=== PATIENT | female | born 1990 ===

== ENCOUNTER 2018-04-17 08:26 | Emergency (ER) | payer BC ==
[2018-04-17 08:46] VITALS: BP 146/102
[2018-04-17] MEDS ORDERED: XYLOCAINE 1% 20 mL INFILTRATI ONE (09:12)
--- NOTE | 2018-04-17 09:13 | Emergency Department Report ---
- General Chief complaint: Skin/Abscess/Foreign Body Stated complaint: BOIL Time Seen by Provider: 04/17/18 09:05 Source: patient Mode of arrival: Ambulatory Limitations: No Limitations - History of Present Illness Initial comments: Patient's 27-year-old [place] female who presents for boil to buttox, for last 4 days now patient started Keflex 2 days ago prescribed by PCP symptoms not improving patient denies no diarrhea no problems with bowel movements this is first abscess assessment Tetanus Up to Date: yes Location: buttocks Severity: moderate ([place] REL or) Severity scale (0 -10): 4 Quality: sharp Consistency: constant Improves with: none Worsens with: movement Context: other (abscess ) Associated symptoms: denies other symptoms Treatments Prior to Arrival: none - Related Data Previous Rx's Medication Instructions Recorded Last Taken Type Cephalexin [Keflex] 500 mg PO Q8HR #30 cap 04/17/18 Unknown Rx traMADol [Ultram] 50 mg PO Q6HR PRN #15 tablet 04/17/18 Unknown Rx Abscess Boil HPI - HPI Chief Complaint: Skin/Abscess/Foreign Body Stated Complaint: BOIL Time Seen by Provider: 04/17/18 09:05 Home Medications: Previous Rx's Medication Instructions Recorded Last Taken Type Cephalexin [Keflex] 500 mg PO Q8HR #30 cap 04/17/18 Unknown Rx traMADol [Ultram] 50 mg PO Q6HR PRN #15 tablet 04/17/18 Unknown Rx ED Review of Systems ROS: Stated complaint: BOIL Other details as noted in HPI Constitutional: denies: chills, fever Eyes: denies: eye pain, eye discharge, vision change ENT: denies: ear pain, throat pain Respiratory: denies: cough, shortness of breath, wheezing Cardiovascular: denies: chest pain, palpitations Endocrine: no symptoms reported Gastrointestinal: denies: abdominal pain, nausea, diarrhea Genitourinary: denies: urgency, dysuria, discharge Musculoskeletal: denies: back pain, joint swelling, arthralgia Skin: other (abscess buttocks) Neurological: denies: headache, weakness, paresthesias Psychiatric: denies: anxiety, depression Hematological/Lymphatic: denies: easy bleeding, easy bruising ED Past Medical Hx - Past Medical History Hx Asthma: No - Surgical History Past Surgical History?: Yes Additional Surgical History: - Social History Smoking Status: Never Smoker Substance Use Type: None - Medications Home Medications: Home Medications Medication Instructions Recorded Confirmed Last Taken Type Cephalexin [Keflex] 500 mg PO Q8HR #30 cap 04/17/18 Unknown Rx traMADol [Ultram] 50 mg PO Q6HR PRN #15 tablet 04/17/18 Unknown Rx ED Physical Exam - General Limitations: No Limitations General appearance: alert, in no apparent distress - Head Head exam: Present: atraumatic, normocephalic - Eye Eye exam: Present: normal appearance - ENT ENT exam: Present: mucous membranes moist - Neck Neck exam: Present: normal inspection - Respiratory Respiratory exam: Present: normal lung sounds bilaterally. Absent: respiratory distress - Cardiovascular Cardiovascular Exam: Present: regular rate, normal rhythm. Absent: systolic murmur, diastolic murmur, rubs, gallop - GI/Abdominal GI/Abdominal exam: Present: soft, normal bowel sounds - Extremities Exam Extremities exam: Present: normal inspection - Back Exam Back exam: Present: normal inspection - Neurological Exam Neurological exam: Present: alert, oriented X3 - Psychiatric Psychiatric exam: Present: normal affect, normal mood - Skin Skin exam: Present: warm, dry, other (abscess buttocks 1x2 right glutteal fold fluctuant painful to touch. ) ED Course Vital Signs 04/17/18 08:34 Temperature 98.8 F Pulse Rate 109 H Respiratory 16 Rate Blood Pressure 146/102 O2 Sat by Pulse 100 Oximetry - I & D Right Buttocks Type of Procedure: Simple Site: right buttock gluteal fold Blade Size: 11 I & D Procedure: betadine prep Progress: Right gluteal fold abscess 1 x 2 cm fluctuant mild erythema pain to touch wound clean and Betadine solution Anesthesia 1% lidocaine local infiltration IV with 11 blade moderate purulent drainage when irrigated 80 mL sterile saline PACKING all bleeding is controlled patient given wound care instructions verbalized understanding and agreement with sign patient tolerated procedure were minimal distress ED Medical Decision Making - Medical Decision Making abscess buttocks I&D completed all bleeding controlled pt tolerated with minimal distress. pt given wound care instructions Critical care attestation.: If time is entered above; I have spent that time in minutes in the direct care of this critically ill patient, excluding procedure time. ED Disposition Clinical Impression: Abscess of buttock Disposition: - TO HOME OR SELFCARE Is pt being admited?: No Does the pt Need Aspirin: No Condition: Good Instructions: Abscess (ED) Prescriptions: Cephalexin [Keflex] 500 mg PO Q8HR #30 cap traMADol [Ultram] 50 mg PO Q6HR PRN #15 tablet PRN Reason: Pain Referrals: PRIMARY CARE,MD [Primary Care Provider] - 3-5 Days Forms: Work/School Release Form(ED) Time of Disposition: 10:24
== END 2018-04-17 10:31 | disposition home or self-care (01) ==
LOC: ED 08:26
DX: L02.31 Cutaneous abscess of buttock (principal)